=== PATIENT | female | born 1965 | race African-American/Black ===

== ENCOUNTER 2016-11-21 21:41 | Emergency (ER) | payer OTHER ==
[~2016-11-21] VITALS: Ht 157.5 cm; Wt 108.9 kg
--- NOTE | ~2016-11-21 | EKG ---
[place] [id number] [facility] [place] [address] ELECTROCARDIOGRAM REPORT Name: GREGOR JORDANARIANA Room #: DEP MARCELA Mcnulty#: [id number] Admission: 11/21/16 Attend Phys: Discharge: 11/22/16 Date of : 63 Report #: [id number] THIS REPORT FOR: //name// [facility] ED Test Date: 2016-11-21 Test Time: 23:08:49 Pat Name: ABRAHAM JORDAN Department: Room: Gender: F Production Maintenance Mechanic: EDWIN : 1965 Requested By: Edith Ochoa Order Number: [id number] MD: Shreyas Dao Measurements Intervals [place] Rate: 74 P: 52 MT: 150 QRS: 50 QRSD: 96 T: 38 QT: 422 QTc: 469 Interpretive Statements Sinus rhythm No significant abnormality No previous ECG available for comparison Electronically Signed On 11-23-2016 8:46:48 CDT by Shreyas Dao [email or web address] <ELECTRONICALLY SIGNED> By: Shreyas Dao MD, [facility] 11/23/16 [id number] Shreyas Dao MD, FAC /EPI
[~2016-11-21 21:41] MED LIST: BENADRYL25 MG PO; CYMBALTA30 MG PO; DESYREL300 MG PO; GEODON60 MG PO; NAPROSYN250 MG PO; NORCO 5-325 TA1 EACH PO; PREDNISONE 20 M20 MG PO; PROMETHAZI6.25 MG/5 PO; RANITIDINE 150150 M1 PO; VALIUM5 MG PO; VENTOLIN HFA INH8 GM INH
[2016-11-21 23:00] LABS: URINE BILIRUBIN NEGATIVE (Negative); URINE BLOOD TRACE (Negative); URINE COLOR YELLOW; URINE GLUCOSE-RANDOM* NEGATIVE (Negative); URINE KETONES NEGATIVE (Negative); URINE LEUKOCYTES-REFLEX 3+ (Negative); URINE PROTEIN (DIPSTICK) NEGATIVE (Negative); URINE SPECIFIC GRAVITY 1.015 (1.003-1.035); URINE UROBILINOGEN 0.2 E.U./dl (0.2-1.0)
[2016-11-21 23:01] LABS: ABSOLUTE NEUTROPHILS 3.6 thou/uL (1.4-8.2); BASOPHILS 0.9 % (0.0-2.0); EOSINOPHILS 1.1 % (0.0-3.0); HEMATOCRIT 41.6 % (37.0-47.0); HEMOGLOBIN 13.5 gm/dL (12.0-15.0); LYMPHOCYTES 37.7 % (24.0-44.0); MCH 26.8 pg (26.0-34.0); MCHC 32.6 g/dL (28.0-37.0); MCV 82.3 fL (80.0-100.0); MONOCYTES 5.7 % (1.0-8.0); PLATELET COUNT 253 thou/uL (150-400); POLYS 54.6 % (36.0-66.0); RBC 5.05 mil/uL (4.20-5.00); RDW 13.8 % (10.5-14.5); WBC 6.5 thou/uL (4.0-11.0)
[2016-11-21 23:06] LABS: CALCIUM 9.7 mg/dL (8.5-10.1); CREATININE 0.8 mg/dL (0.6-1.0); MANUAL DIFF NO; POTASSIUM 3.7 mmol/L (3.5-5.1)
[2016-11-21 23:15] LABS: CASTS None Seen /LPF (None Seen); CRYSTALS None Seen /LPF (None Seen); SQUAMOUS >10 Many /LPF (0-3); URINE RBC None Seen /HPF (0-2); URINE WBC-REFLEX 0-5 Rare /HPF (0-5)
[2016-11-22] MEDS ORDERED: NORCO 5-325 TA1 EACH PO (01:34)
[2016-11-22] MEDS ORDERED: LEVAQUIN 750 M750 MG PO (01:35)
== END 2016-11-22 01:45 | disposition home or self-care (01) ==
LOC: ER 21:41
PROVIDERS: Emergency Medicine
DX: N39.0 Urinary tract infection, site not specified (principal); M79.1 Myalgia; R91.1 Solitary pulmonary nodule; F31.9 Bipolar disorder, unspecified; F20.9 Schizophrenia, unspecified; F17.200 Nicotine dependence, unspecified, uncomplicated; Z90.711 Acquired absence of uterus with remaining cervical stump; Z88.6 Allergy status to analgesic agent

== ENCOUNTER → 2016-12-04 | Outpatient (CLI) | payer OTHER ==
[~2016-12-04] MED LIST changes: +LEVAQUIN 750 M750 MG PO
[2016-12-04 11:46] LABS: ABSOLUTE NEUTROPHILS 2.4 thou/uL (1.4-8.2); BASOPHILS 0.7 % (0.0-2.0); HEMATOCRIT 38.9 % (37.0-47.0); HEMOGLOBIN 12.5 gm/dL (12.0-15.0); LYMPHOCYTES 49.1 % (24.0-44.0); MCH 26.4 pg (26.0-34.0); MCV 82.5 fL (80.0-100.0); MONOCYTES 9.4 % (1.0-8.0); PLATELET COUNT 231 thou/uL (150-400); POLYS 37.8 % (36.0-66.0); RBC 4.71 mil/uL (4.20-5.00); URINE BILIRUBIN NEGATIVE (Negative); URINE BLOOD NEGATIVE (Negative); URINE COLOR YELLOW; URINE GLUCOSE-RANDOM* NEGATIVE (Negative); URINE KETONES NEGATIVE (Negative); URINE NITRITE NEGATIVE (Negative); URINE PROTEIN (DIPSTICK) NEGATIVE (Negative); URINE SPECIFIC GRAVITY <= 1.005 (1.003-1.035); URINE UROBILINOGEN 0.2 E.U./dl (0.2-1.0); WBC 6.4 thou/uL (4.0-11.0)
[2016-12-04 11:48] LABS: MANUAL DIFF NO
[2016-12-04 12:17] LABS: ALBUMIN 3.6 g/dL (3.4-5.0); ALKALINE PHOSPHATASE 67 U/L (46-116); ANION GAP 7 mmol/L (7-16); BUN 11 mg/dL (7-18); CALCIUM 9.2 mg/dL (8.5-10.1); CHLORIDE 104 mmol/L (98-107); CHOLESTEROL 231 mg/dL (<200); CO2 30 mmol/L (21-32); CREATININE 0.8 mg/dL (0.6-1.0); GLUCOSE 88 mg/dL (74-106); HDL CHOLESTEROL 47 mg/dL (>40); LDL CHOLESTEROL 153 mg/dL (<100); SGOT 17 U/L (15-37); SGPT 20 U/L (30-65); SODIUM 141 mmol/L (136-145); TC:HDL 4.9 Ratio (Not establshd); TOTAL BILIRUBIN 0.2 mg/dL (<0.1-1.0); TOTAL PROTEIN 7.4 g/dL (6.4-8.2); TRIGLYCERIDE 155 mg/dL (<150); VLDL 31 mg/dL (<40)
== END ==
LOC: LABMALL 11:13 → RAD 11:13
PROVIDERS: Internal Medicine
DX: J18.9 Pneumonia, unspecified organism (principal); J45.909 Unspecified asthma, uncomplicated; N39.0 Urinary tract infection, site not specified; E56.9 Vitamin deficiency, unspecified; R31.9 Hematuria, unspecified